=== PATIENT | male | born 1945 ===

== ENCOUNTER → 2017-03-01 | Day surgery (SDC) | payer MEDICARE, OTHER ==
[~2017-03-01] VITALS: Ht 172.7 cm; Wt 62.9 kg
[~2017-03-01] MED LIST: ATIVAN 0.5MG0.5 MG PO; B COMPLEX1 EACH PO; CELEBREX100 MG PO; CELEBREX200 MG PO; COCONUT OIL; FASTIN **IA 9/30 MG PO; FLOMAX0.4 MG PO; HYDROCODON-ACE1 EAC4 PO; IRON325 M1 PO; KEFLEX500 MG PO; LINZESS145 MCG PO; LOMAIRA8 MG PO; MELATONIN10 M2 PO; MEN 50 PLUS MU1 EACH PO; NIGHTTIME SLEEP50 M1 PO; OMEPRAZOLE40 MG PO; PHILLIPS' COLO1 EACH PO; PRESERVISION A1 EAC1 PO; PRESERVISION A1 EAC2 PO; PROTONIX40 MG PO; SEROQUEL300 MG PO; STOOL SOFTENER100 M1 PO; ULTRAM50 MG PO; WELLBUTRIN XL300 M1 PO; ZOLPIDEM TART12.5 MG PO; [UNRECOGNIZED DRUG - OTHER] PO
== END | disposition disaster alternative care site (69) ==
LOC: GPOC 02-25 16:00 → GEND 06:53 → GPOC 07:00
PROC: 0DBK8ZZ Excision of Ascending Colon, Via Natural or Artificial Opening Endoscopic (ICD-10-PCS; principal; 2017-03-01)
PROC: 0DJ08ZZ Inspection of Upper Intestinal Tract, Via Natural or Artificial Opening Endoscopic (ICD-10-PCS; 2017-03-01)
DX: Z12.11 Encounter for screening for malignant neoplasm of colon (principal); D12.2 Benign neoplasm of ascending colon; K31.89 Other diseases of stomach and duodenum; Z87.19 Personal history of other diseases of the digestive system; Z90.49 Acquired absence of other specified parts of digestive tract; Z98.49 Cataract extraction status, unspecified eye
CPT/HCPCS: J2001; J7030

== ENCOUNTER 2017-08-01 15:09 | Emergency (ER) | payer MEDICARE, OTHER ==
--- NOTE | ~2017-08-01 | ER ---
PATIENT'S NAME: DAYANA CHILDS [facility] AGE: 72 Y [address] ROOM: [place] [address] LOCATION: ED ADMIT DATE: 08/01/2017 ER/Outpatient Report DISCHARGE DATE: 08/01/2017 FAMILY PHYSICIAN: Helene Arreola MD ATTENDING PHYSICIAN: Dany Son CHIEF COMPLAINT: Red urine. HISTORY OF PRESENT ILLNESS: Mr. Childs presents for evaluation of red urine. He has noticed over the last week that any time he urinates, there is a reddish orange substance in the bottom of the toilet. Today, he actually looked at his stream and found that it was red to his eye. That is when he decided to come in. He has had no changes in frequency or urgency. He has no fevers and no burning with urination. He has a history of a UroLift procedure for prostatic hypertrophy. He has had no retention issues. He denies any flank pain, fevers, chills, nausea, vomiting, and is otherwise feeling at his baseline. He does not take any anticoagulation. He has a history of gastric bypass surgery as well as some other cosmetic surgeries related to significant weight loss. He denies any other issues at this time. PAST MEDICAL HISTORY: Documented on the record and reviewed by me. SOCIAL HISTORY: Documented on the record and reviewed by me. MEDICATIONS: Documented on the record and reviewed by me. ALLERGIES: DOCUMENTED ON THE RECORD AND REVIEWED BY ME. REVIEW OF SYSTEMS: All systems reviewed and negative except as noted in the HPI. PHYSICAL EXAMINATION: VITAL SIGNS: On arrival; blood pressure 119/70, pulse 85, respiratory rate is 20, temperature 97.2, SpO2 is 97% on room air. Pain 0/10. GENERAL: Age-appropriate male. Upright in a chair. No apparent pain or distress. NEUROLOGIC: Awake and alert. GCS 15. HEENT: Normocephalic, atraumatic. Eyes are PERRL. Oropharynx is clear. NECK: Supple. Trachea is midline. PATIENT'S NAME: DAYANA CHILDS [facility] AGE: 72 Y [address] ROOM: [place] [address] LOCATION: [facility] ADMIT DATE: 08/01/2017 ER/Outpatient Report DISCHARGE DATE: 08/01/2017 FAMILY PHYSICIAN: Helene Arreola MD ATTENDING PHYSICIAN: Dany Son CHEST/HEART: Regular rate and rhythm with no murmurs. LUNGS: Clear to auscultation bilateral with no rhonchi, wheezes, or rales. ABDOMEN: Soft, nontender, and nondistended. No suprapubic tenderness. BACK: Normal to inspection and palpation. No CVA tenderness. EXTREMITIES: Warm, well formed, well perfused. SKIN: Appears to be grossly intact. LABORATORY DATA AND X-RAYS: Urinalysis is notable for the following; no leukocytes, positive nitrites, 15 protein, 8 urobilinogen, bilirubin is high, blood is negative on dip. Micro; 0-2 wbc's, 0-2 rbc's, 2-5 epithelials, few bacteria, and 2-5 casts. CBC is without appreciable abnormality. Hemoglobin is 13.5. INR is less than 1. CMS with no appreciable electrolyte abnormalities, renal abnormalities, or abnormalities of the hepatobiliary system with a total bilirubin of 0.5. Cultures pending. IMPRESSION: [place] colored urine. EMERGENCY DEPARTMENT COURSE: The patient was seen and evaluated as above. Urine is without blood. It is nitrite positive. No bacteria reported. No leukocytes and no whites. As he is currently asymptomatic from an infection standpoint, we will have the culture pending. We will withhold treatment at this time. I discussed reasons for re-evaluation and treatment initiation with Mr. Childs, who expect expresses understanding. He is to contact his urologist, Dr. Blount as needed and follow up with his primary care physician as needed as well. Should he develop infectious signs or symptoms, he is to return to the emergency department or be evaluated immediately. We will contact him if his urine culture is positive. All questions were answered and the patient was discharged in good condition. MD CITLALI ECHAVARRIA/familia /[id number] d: 08/01/17 2148 t: 08/10/17 1056, OUTPATIENT REPORT
[2017-08-01 15:38] LABS: BLOOD URINE NEGATIVE /UL (NEGATIVE); GLUCOSE URINE NEGATIVE (NEGATIVE); KETONE URINE NEGATIVE (NEGATIVE); LEUKOCYTES URINE NEGATIVE /UL (NEGATIVE); NITRITE URINE POSITIVE (NEGATIVE); PROTEIN URINE 15 mg/dL (NEGATIVE); TURBIDITY URINE CLEAR (CLEAR); UROBILINOGEN URINE 8 mg/dL (NORMAL)
[2017-08-01 15:40] LABS: COLOR URINE OTHER (YELLOW)
[2017-08-01 15:49] LABS: BACTERIA URINE FEW (NEGATIVE); RBC URINE 0-2 #/HPF (NEGATIVE); WBC URINE 0-2 #/HPF (NEGATIVE)
[2017-08-01 16:06] LABS: BASOPHIL % 0.6 %; EOSINOPHIL # 0.2 K/uL (0.0-0.5); EOSINOPHIL % 5.1 %; HEMATOCRIT 40.6 % (37.0-53.0); HEMOGLOBIN 13.5 g/dL (11.0-16.0); IMMATURE GRANULOCYTE % 0.2 %; LYMPHOCYTE # 1.6 K/uL (0.8-4.0); LYMPHOCYTE % 33.8 %; MCH 32.3 pg (27.0-34.0); MCHC 33.3 gm/dL (32.0-36.5); MCV 97.1 fl (83.0-98.0); MONOCYTE # 0.4 K/uL (0.0-1.0); MONOCYTE % 8.9 %; MPV 8.5 fl (9.4-12.4); NEUTROPHIL # (ANC) 2.4 K/uL (1.4-9.0); NEUTROPHIL % 51.4 %; NRBC % 0 /100WBC (0-0.00); PLATELET COUNT 218 K/uL (150-450); RBC 4.18 M/uL (3.50-5.50); WBC 4.7 K/uL (4.0-11.0)
[2017-08-01 16:16] LABS: INR - (THERAPEUTIC) 0.93 (0.92-1.07); PROTIME 9.8 SECONDS (9.8-11.4); PTT 27 SECONDS (25-32)
[2017-08-01 16:26] LABS: ALBUMIN 4.2 gm/dL (3.5-5.0); ANION GAP 8.2 (10.0-19.0); CALCIUM 9.3 mg/dL (8.5-10.5); POTASSIUM 4.2 mMol/L (3.7-5.1); TOTAL BILIRUBIN 0.5 mg/dL (0.0-1.5); TOTAL PROTEIN 7.4 g/dL (6.0-8.4)
== END 2017-08-01 16:43 | disposition disaster alternative care site (69) ==
LOC: GMED 15:09
PROVIDERS: Emergency Medicine; Nurse Practitioner Family
DX: R82.99 Other abnormal findings in urine (principal); Z79.899 Other long term (current) drug therapy; Z88.8 Allergy status to other drugs, medicaments and biological substances